=== PATIENT | female | born 1945 | race Caucasian/White ===

== ENCOUNTER 2018-11-02 10:10 | Emergency (ER) | payer OTHER, BC ==
[~2018-11-02] VITALS: Ht 167.6 cm; Wt 79.4 kg
[2018-11-02 10:10] VITALS: BP_SYST 122
[2018-11-02] MEDS ORDERED: traMADol HCL HCL 50 MG TABLET (ULTRAM) PO ONE (11:45)
[2018-11-02 13:05] VITALS: BP_SYST 122
== END 2018-11-02 13:05 | disposition home or self-care (01) ==
LOC: SED 10:10
DX: R33.9 Retention of urine, unspecified (principal); I25.2 Old myocardial infarction; E11.9 Type 2 diabetes mellitus without complications; I10 Essential (primary) hypertension; Z90.89 Acquired absence of other organs
CPT/HCPCS: 99283